=== PATIENT | female | born 1960 | race Caucasian/White ===

== ENCOUNTER 2017-01-10 09:28 | Emergency (ER) | payer BC ==
--- NOTE | 2017-01-10 09:42 | Emergency Department Record ---
History of Present Illness - General Chief complaint: Extremity Problem Stated complaint: RIGHT ANKLE INJURY Time Seen by Provider: 01/10/17 09:42 Source: Patient Mode of Arrival: Ambulatory Limitations: No limitations - History of Present Illness Initial comments: The patient is here due to R ankle pain. She tripped walking in a parking lot last night. She is able to walk on it but with pain. There is no numbness or tingling. MD Complaint: Extremity pain Onset/Timin -: Days(s) Location: Right, Ankle History of Same: Yes Radiation: Proximal, Distal Severity scale (1-10): 6 Quality: Aching Consistency: Constant Improves with: Nothing Worsens with: Nothing Associated Symptoms: Denies other symptoms - Related Data Home Medications Medication Instructions Recorded Confirmed Last Taken Gabapentin [Gabapentin] 600 mg PO QHS 09/29/14 01/10/17 1 Day Ago Levothyroxine Sodium [Synthroid] 112 mcg PO DAILY 09/29/14 01/10/17 1 Day Ago Metoprolol Succinate 50 mg PO DAILY 09/29/14 01/10/17 1 Day Ago Duloxetine HCl [Cymbalta] 60 mg PO DAILY 01/10/17 01/10/17 1 Day Ago Methocarbamol [Robaxin] 1 tab PO BID PRN 01/10/17 01/10/17 1 Day Ago Allergies Allergy/AdvReac Type Severity Reaction Status Date / Time gluten Allergy VOMITING Verified 01/10/17 09:40 Travel Screening - Travel/Exposure Within Last 30 Days Have you traveled within the last 30 days?: No - Travel/Exposure Within Last Year Have you traveled outside the [place] in the last year?: No - Additonal Travel Details Have you been exposed to anyone with a communicable illness?: No - Travel Symptoms Symptom Screening: None Review of Systems Constitutional: Denies: Chills, Fever Eyes: Denies: Eye discharge ENT: Denies: Congestion Respiratory: Denies: Cough Past Medical History - SOCIAL HISTORY Smoking Status: Former smoker Alcohol Use: None Drug Use: None - RESPIRATORY Hx Respiratory Disorders: No - CARDIOVASCULAR Hx Cardio Disorders: No - NEURO Hx Neuro Disorders: Yes Hx Headaches: Yes Hx Seizures: Yes (last one was one year ago) - GI Hx GI Disorders: No - Hx Genitourinary Disorders: No - ENDOCRINE Hx Endocrine Disorders: Yes Hx Thyroid Disease: Yes (Hoshimotos) - MUSCULOSKELETAL Hx Musculoskeletal Disorders: Yes Comment:: Neuropathy - PSYCH Hx Psych Problems: No - HEMATOLOGY/ONCOLOGY Hx Hematology/Oncology Disorders: No Family Medical History Any Significant Family History?: Yes Hx Heart Disease: Grandparents Hx HTN: Father Physical Exam - General General Appearance: Alert, Oriented x3, Cooperative, No acute distress - Head Head exam: Atraumatic, Normocephalic, Normal inspection - Eye Eye exam: Normal appearance - Extremities Extremities exam: Joint swelling (R ankle laterally.), Tenderness (There is significant tenderness to the distal fibula area.). negative: Normal inspection (There is mild to moderate edema to the distal R fibula area.), Full ROM (There is pain with ROM but no ligamentous laxity.) Course Vital Signs 01/10/17 09:34 Temperature 97.6 F Pulse Rate 99 H Respiratory 20 Rate Blood Pressure 117/82 Pulse Ox 96 - Reevaluation(s) Reevaluation #1: I did discuss the neg xrays with the patient and the need for F/U if not better. 01/10/17 10:19 Medical Decision Making - Data Complexity MDM Data: X-Ray Ordered and/or Reviewed - Radiology Data Radiology results: Report reviewed (R ankle: Neg) Disposition Disposition: Discharge Clinical Impression: Ankle sprain Qualifiers: Encounter type: initial encounter Involved ligament of ankle: unspecified ligament Laterality: right Qualified Code(s): S93.401A - Sprain of unspecified ligament of right ankle, initial encounter Disposition: Home, Self-Care Condition: (1) Good Instructions: Ankle Sprain (ED) Additional Instructions: Please use Tylenol or Motrin for pain and ice and elevate the ankle for 2 days. Wear the splint for 4-5 days. Please see your PCP next week if not better and return to the ER if worse. Forms: Patient Portal Access Time of Disposition: 10:18
[2017-01-10] MEDS ORDERED: IBUPROFEN 600 MG TABLET PO ONE (09:44)
== END 2017-01-10 10:33 | disposition home or self-care (01) ==
LOC: ER 09:28
DX: S93.401A Sprain of unspecified ligament of right ankle, initial encounter (principal); W18.09XA Striking against other object with subsequent fall, initial encounter; Y92.481 Parking lot as the place of occurrence of the external cause
CPT/HCPCS: 99283

== ENCOUNTER 2018-07-31 10:32 | Emergency (ER) | payer BC ==
--- NOTE | 2018-07-31 11:07 | Emergency Department Record ---
History of Present Illness - General Chief Complaint: Cough Stated Complaint: COUGH/ CONGESTION Time Seen by Provider: 07/31/18 10:48 Source: Patient Mode of Arrival: Ambulatory Limitations: No limitations - History of Present Illness Initial Comments: The patient is here due to a cough and congestion for about a month. She has had a ST intermittently and has felt feverish but not recently. She denies any CP, SOB, or YANI. MD Complaint: Cough, Nasal congestion, Rhinorrhea Onset/Timin -: Month(s) - Related Data Home Medications Medication Instructions Recorded Confirmed Last Taken Buspirone HCl [Buspar] 10 mg PO DAILY 07/31/18 07/31/18 07/30/18 Previous Rx's Medication Instructions Recorded Azithromycin [Zithromax] 250 mg PO ASDIR #6 tab 07/31/18 Allergies Allergy/AdvReac Type Severity Reaction Status Date / Time gluten Allergy VOMITING Verified 07/31/18 10:40 Travel Screening - Travel/Exposure Within Last 30 Days Have you traveled within the last 30 days?: No Review of Systems Constitutional: Reports: Malaise. Denies: Chills, Fever Eyes: Denies: Eye discharge ENT: Reports: Congestion Respiratory: Reports: Cough. Denies: Dyspnea, Hemoptysis, Stridor, Wheezes Cardiovascular: Denies: Arrhythmia, Chest pain Past Medical History - SOCIAL HISTORY Smoking Status: Light tobacco smoker (<10/day) Alcohol Use: None Drug Use: None - RESPIRATORY Hx Respiratory Disorders: No - CARDIOVASCULAR Hx Cardio Disorders: Yes Hx Hypertension: Yes - NEURO Hx Neuro Disorders: Yes Hx Headaches: Yes Hx Seizures: Yes (last one was one year ago) - GI Hx GI Disorders: No - Hx Genitourinary Disorders: No - ENDOCRINE Hx Endocrine Disorders: Yes Hx Thyroid Disease: Yes (Hoshimotos) - MUSCULOSKELETAL Hx Musculoskeletal Disorders: Yes Comment:: Neuropathy - PSYCH Hx Psych Problems: Yes Hx Anxiety: Yes Hx Depression: Yes - HEMATOLOGY/ONCOLOGY Hx Hematology/Oncology Disorders: No Family Medical History Any Significant Family History?: Yes Hx Heart Disease: Grandparents Hx HTN: Father Physical Exam - General General Appearance: Alert, Oriented x3, Cooperative, No acute distress - Head Head exam: Atraumatic, Normocephalic, Normal inspection - Eye Eye exam: Normal appearance, PERRL. negative: Conjunctival injection - ENT Throat exam: Normal inspection. negative: Tonsillar erythema, Tonsillar exudate - Neck Neck exam: Normal inspection, Full ROM. negative: Tenderness - Respiratory Respiratory exam: Normal lung sounds bilaterally. negative: Accessory muscle use, Rales, Respiratory distress, Rhonchi, Stridor, Wheezes - Cardiovascular Cardiovascular Exam: Regular rate, Normal rhythm, Normal heart sounds - GI/Abdominal GI/Abdominal exam: Soft, Normal bowel sounds. negative: Tenderness - Extremities Extremities exam: Normal inspection, Full ROM, Normal capillary refill. negative: Tenderness - Neurological Neurological exam: Alert. negative: Motor sensory deficit Course Vital Signs 07/31/18 10:37 Temperature 98.2 F Pulse Rate 79 Respiratory 18 Rate Blood Pressure 122/110 Pulse Ox 97 - Reevaluation(s) Reevaluation #1: I did explain to the patient the need for an oral Abx and F/U with her PCP if not better. 07/31/18 11:05 Disposition Disposition: Discharge Clinical Impression: URI (upper respiratory infection) Qualifiers: URI type: unspecified URI Qualified Code(s): J06.9 - Acute upper respiratory infection, unspecified Disposition: Home, Self-Care Condition: (2) Stable Instructions: Cold Symptoms (ED) Additional Instructions: Please take the Zpak as directed along with an OTC cough and cold medicine. Please see your family doctor for recheck in 3-4 days if not better and return to the ER for any worsening symptoms. Prescriptions: Azithromycin [Zithromax] 250 mg PO ASDIR #6 tab Forms: Patient Portal Access Time of Disposition: 11:06 Quality - Quality Measures Quality Measures: N/A - Blood Pressure Screening View Details: Yes Does Patient Have Any of the Following: No Blood Pressure Classification: Hypertensive Reading Systolic Measurement: 122 Diastolic Measurement: 110 Screening for High Blood Pressure: < First Hypertensive BP, F/U Documented > [ [id number]] First Hypertensive Follow-up Interventions: Referral to alternative/primary care provider.
== END 2018-07-31 11:14 | disposition home or self-care (01) ==
LOC: ER 10:32
DX: J06.9 Acute upper respiratory infection, unspecified (principal); R05 Cough; I10 Essential (primary) hypertension; F17.210 Nicotine dependence, cigarettes, uncomplicated
CPT/HCPCS: 99282